=== PATIENT | female | born 1970 | race Caucasian/White ===

== ENCOUNTER 2023-02-03 06:47 | Day surgery (SDC) | payer BC ==
[~2023-02-03] VITALS: Ht 177.8 cm; Wt 104.8 kg
[~2023-02-03 06:47] MED LIST: ALLEGRA ALLERGY60 MG PO; ALPRAZOLAM1 MG PO; ATORVASTATIN CA10 MG PO; AZELASTINE HYD0.15 %; BUSPIRONE5 MG PO; LEXAPRO10 MG PO; LISINOPRIL2.5 MG PO; MULTI VIT PO; ROPINIROLE0.5 MG PO; VIT C/ACEROL500 M1 PO; ZINC PO
[2023-02-03 08:52] VITALS: BP 115/61
== END 2023-02-03 08:40 | disposition home or self-care (01) | DRG 951 ==
LOC: ENDO 06:47
PROVIDERS: ATTEND Internal Medicine Gastroenterology
PROC: 0DBK8ZX Excision of Ascending Colon, Via Natural or Artificial Opening Endoscopic, Diagnostic (ICD-10-PCS; principal; 2023-02-03)
DX: Z12.11 Encounter for screening for malignant neoplasm of colon (principal); D12.2 Benign neoplasm of ascending colon; K57.30 Diverticulosis of large intestine without perforation or abscess without bleeding; K64.8 Other hemorrhoids